=== PATIENT | female | born 1985 | race American Indian/Alaskan Native ===

== ENCOUNTER 2024-09-30 21:13 | Inpatient (IN) | payer OTHER, SELFPAY ==
[2024-09-30 17:48] VITALS: BP 115/70
--- NOTE | 2024-09-30 18:52 | ED.GENMED ---
History of Present Illness
General
Chief Complaint: Breathing Problem
Source: patient
Exam Limitations: none
Time Seen by Provider: 09/30/24 18:19
Nursing documentation reviewed up to this point in time: agreed with
History of Present Illness
History of Present Illness:
Patient diagnosed with lupus last year, currently taking hydroxychloroquine, presents to ED secondary to persistent, worsening chest pain with shortness of breath over the past 4 weeks. Chest pain described as sharp, worse when laying down, mildly
improved, when she leans forward. Patient has been evaluated in the emergency department on 3 separate occasions with unremarkable workup. Patient denies fever or chills. Denies nausea or vomiting. Denies direct trauma. Denies leg pain or
swelling. Denies back pain. In addition, patient reports dizziness with headache, and light sensitivity, at onset of her symptoms, which now has improved significantly. Denies recent travel. Denies sick contact. Denies previous history of
similar symptoms. During previous ED visits, patient reports having received CT head and CT chest without abnormal findings. Patient has been recommended to follow-up with cardiology as an outpatient, but does not have an appointment till November.
Review of Systems
Review of Systems
Allergies reviewed?: Yes
All Other Systems: ROS reviewed and negative except as documented in HPI and ROS
Constitutional: Reports no symptoms
Respiratory: Reports trouble breathing
Cardiac: Reports chest pain
ABD/GI: Reports no symptoms
Musculoskeletal: Reports no symptoms
Skin: Reports no symptoms
Neurological: Reports no symptoms
Phy Exam
Physical Exam
Physical Exam:
Physical Exam
General: mild distress, not acutely ill. afebrile
Head: nc/at. eomi
Neck: supple. no meningeal signs. no jvd
Heart: s1/s2 regular rate and rhythm, no murmur
Lungs: no acute respiratory distress. clear bilaterally
Abdomen: normal bowel sounds. not tender.
Neuro: alert and oriented x 3. no focal neurological deficits
Skin: no rash
Psychiatric: well kept. interactive and cooperative
Extremities: no edema. no calf tenderness.
Course
Orders/Labs/Results
Orders:
Orders
09/30/24 Breakfast
Regular
At Your Request: Full Participation
09/30/24 17:43
EKG [Electrocardiogram (*1)] Urgent
Reason for Study: Shortness of Breath
EKG- Treatment ONCE
09/30/24 18:49
Ketorolac [Toradol] 15 mg IV NOW STA
Test Result ONCE
09/30/24 19:01
0.9% Sodium Chloride 500 ml [Nss] 500 ml IV BOLUS
09/30/24 19:23
CPK [Creatine Phosphokinase] Urgent
Complete Blood Count/With Diff Urgent
Comprehensive Metabolic Panel Urgent
HCG, Serum Qualitative Screen Urgent
Magnesium Urgent
Troponin I Urgent
09/30/24 19:30
Colchicine 0.6 mg PO NOW STA
09/30/24 20:47
Admit/Transfer Patient As Directed
Co-Sign Provider:
Level of Care: Inpatient admission
Assign to:: Telemetry
Physician / Group: yanet
Diagnosis: pericarditis
Reason for Telemetry: Chest Pain syndromes
Date to Stop Telemetry: 10/02/24
Time to Stop Telemetry: 11:00
Reason for Hospitalization: pericarditis
Expected length of stay greater than two midnights?: Yes
ELOS- Estimated Length of Stay in days: 3
I certify the patient meets the requirements for IP care: Yes
09/30/24 20:48
PRN Pain Medication Management As Directed
May give lesser potent ordered pain med per pt: Yes
preference::
Protocol:: Medication orders for pain may be administered in a
manner that supports deferring to patient preference
when the pt is:
- Requesting an ordered lesser potent pain medication.
Least to most potent pain medications are defined
as: acetaminophen < NSAID < tramadol < opioids
(morphine, oxycodone, hydromorphone).
- Requesting a lesser dose of the same medication IF
ORDERED.
- Requesting a less intrusive route of administration
if both routes are prescribed by the provider (PO <
IV).
09/30/24 20:49
Code Status As Directed
Resuscitation Status: Full Code
09/30/24 21:48
Bisacodyl [Dulcolax] 10 mg RECTAL [id number] PRN
Docusate Sodium [Colace] 100 mg PO BID
Docusate W/Senna [Senokot-S] 1 tablet PO BIDPRN PRN
Polyethylene Glycol Powder [Miralax] 17 grams PO DAILYPRN PRN
09/30/24 21:48
CARDIOLOGY CONSULT Routine
Consulting Provider: Gustavo Chicas
Was physician already notified: Yes
Activity As Directed
Activity Level: As Tolerated
Vital Signs As Directed
Frequency: Per unit guidelines
DX Deep Vein Thrombosis Video Routine
09/30/24 22:00
Sennosides [Senna Syrup] 8.8 mg PO HS
10/01/24 01:26
Troponin I Q6H
10/01/24 02:00
Ketorolac [Toradol] 10 mg IV Q6HPRN PRN
10/01/24 06:00
Echo 2D MMode Color/Doppler IN AM
Reason for Study: chest pain
10/01/24 07:23
Troponin I Q6H
10/01/24 08:00
Colchicine 0.6 mg PO BID
10/01/24 18:00
Enoxaparin Sodium [Lovenox] 40 mg SC QPM
10/02/24 11:00
DC Protocol for Telemetry ONCE
Abnormal Lab Results
09/30/24
19:23
WBC 4.3 L 10^3/uL
(4.8-10.8)
RBC 4.10 L 10^6/uL
(4.20-5.40)
Hct 36.9 L %
(37.0-47.0)
MCH 31.5 H pg
(27.0-31.0)
Absolute Neuts (auto) 1.3 L 10^3/uL
(1.4-6.5)
Neutrophils % 30.8 L %
(42.2-75.2)
Lymphocytes % 58.0 H %
(20.5-51.1)
Monocytes % 9.5 H %
(1.7-9.3)
Creatinine 0.5 L mg/dL
(0.6-1.0)
Alkaline Phosphatase 37 L U/L
(38-126)
09/30/24 19:23
09/30/24 19:23
Vital Signs
Initial and Last Documented VS:
Initial Vital Signs
Temp Pulse Resp BP Pulse Ox
98.2 F 74 20 115/70 98
09/30/24 17:48 09/30/24 17:48 09/30/24 17:48 09/30/24 17:48 09/30/24 17:48
Last Documented Vital Signs
Temp Pulse Resp BP Pulse Ox
97.9 F 63 16 99/57 100
10/02/24 15:00 10/02/24 15:00 10/02/24 15:00 10/02/24 15:00 10/02/24 15:00
MDM/Problems Addressed
MDM/Problems Addressed:
Patient remains symptomatic despite treatment. History and exam concerning for potential pericarditis, as complication of her underlying lupus. As such, patient will be admitted for further evaluate treatment.
*Pulse Oximetry
SaO2: 98
Oxygen Mode of Delivery: Room air
Patient hypoxic: no
*EKG
Interpreted by ED Provider?: Yes
EKG Intrepretation Date: 09/30/24
Heart Rate: 65
Rate: normal
Rhythm: sinus
*Critical Care Note
Total Time (30-74mins, 75-104mins- exclusive of procedures): Not Applicable
ED Attending Note
-
Portions of this chart may have been created with voice recognition software.� Occasional wrong word or��sound alike� substitutions may have occurred due to the inherent limitations of voice recognition software.
Discharge Plan
Departure
Patient Disposition: Admit
Date of Disposition: 09/30/24
Time of Disposition: 20:44
Admit to: Med/Surg
Presentation/result/management discussed w/ accepting MD/DO: Hospitalist
Discharge Problem:
Chest pain
Interventions
Interventions:
*Risk Screen - Suicide Last Done: 09/30/24 19:13
*General Assessment Last Done: 09/30/24 17:48
*Neglect/Abuse Screening Last Done: 09/30/24 19:13
*ED- Fall Risk Assessment Last Done: 09/30/24 19:42
*Nursing Disposition Last Done: 09/30/24 21:46
ED- Cardiac Assessment Last Done: 09/30/24 19:42
ED- Pulmonary Assessment Last Done: 09/30/24 19:42
Discharge Date and Time
Discharge Date/Time: 09/30/24 21:46
[2024-09-30 19:12] VITALS: BMI 25.9
[2024-09-30 19:17] VITALS: BP 107/42
--- NOTE | 2024-09-30 19:18 | EDRN ---
Pt has had pain in the center of her chest x 3 weeks. Pt gets sob sometimes. Pain comes and goes but she says it is there more often than it is not. Pt notes decreased appetite and a feeling of fullness. Last BM 3 days ago. Pt says she took a
powder the past couple days for constipation. No abd pain. Occasional nausea, no vomiting. No fever/chills/cough, urinary symptoms. Pt adds when she leans down or lays on her left side the chest pain is better. Pt did not take anything for
pain. Pt went to two hospitals - September 11, and this morning and she says 'they do scans and xrays and tell me to see a business development agent and get an echo.'
[2024-09-30] MEDS: NSS 500 IV (19:30)
[2024-09-30] MEDS: TORADOL 15 MG IV (19:31)
[2024-09-30] MEDS: COLCHICINE 0.6 MG PO (19:37)
[2024-09-30 19:50] LABS: HCG, Serum Qualitative Screen Negative
[2024-09-30 19:54] LABS: ALT (SGPT) 32 U/L (0-35); AST (SGOT) 18 U/L (14-36); Albumin 4.8 g/dl (3.5-5.0); Alkaline Phosphatase 37 U/L (38-126); Blood Urea Nitrogen 11 mg/dl (7-17); Calcium 10.1 mg/dl (8.4-10.2); Carbon Dioxide 25 mmol/L (22-30); Chloride 106 mmol/L (98-107); Estimated Creatinine Clearance 114 ml/min; Glucose 78 mg/dl (70-99); Magnesium 2.1 mg/dl (1.6-2.3); Potassium 3.8 mmol/L (3.5-5.1); Sodium 140 mmol/L (135-145); Total Protein 8.0 g/dl (6.3-8.2); eGFR > 60.00
[2024-09-30 20:02] VITALS: BP 104/65
[2024-09-30 20:03] LABS: Troponin I < 0.012 ng/ml
[2024-09-30 20:07] LABS: Hematocrit 36.9 % (37.0-47.0); Hemoglobin 12.9 g/dL (12.0-16.0); Mean Corp Hgb Conc. 35.0 g/dL (33.0-37.0); Mean Corpuscular Volume 90.0 fL (81.0-99.0); Nucleated Red Blood Cells % 0 %; Platelet Count 238 10^3/uL (130-400); Red Cell Dist. Width 12.1 % (11.5-14.5)
--- NOTE | 2024-09-30 20:29 | HPS.HSE ---
Addendum entered and electronically signed by David Talamantes DO 09/30/24 23:04:
Patient seen and examined independently. Agree with findings and plan as set forth by ARNAUD Santizo.
Patient is a 39y F with PMH significant for lupus and antiphospholipid antibody syndrome who presents to ED complaining of chest pain. Patient states that she has been having sharp, substernal chest pain for about one month. Pain is worse with
lying flat and better with sitting upright / leaning forward. She has some associated / intermittent SOB. No fevers / chills. Occasional cough (with increased pain while coughing). She has been seen at 3 other EDs in the past month and presented
here this evening for additional evaluation of ongoing symptoms.
Ass:
Pericarditis
Lupus
Antiphospholipid Abs
GERD
Constipation
Plan:
Admit for further evaluation and treatment.
History consistent with pericarditis in this 39y F - ? secondary to infectious process / post-infectious versus SLE versus other.
NSAIDs, colchicine, etc.
Follow for improvement in chest pain syndrome.
Echo in the AM.
Cardiology consulted for additional recommendations.
Bowel regimen, PPI.
Original Note:
Family Physician
-
Family Physician: MATILDE DEL TORO
Chief Complaint
-
chest pain, sob
History of Present Illness
39 year old with PMH for factor V Leiden, Lupus, antiphospholipid syndrome presented to us with mid sternum chest pain for past three weeks. patient stated sob associated with pain. the pain is worse when laying down, improves when sitting up or
leaning forward. patient stated sometimes it feels like her water and food is stuck. stated some GARCIA. denied fever, chills. she is complaining of cough. she is complaining of abdominal pain because she has not moved her bowel in three days. she also
stated burping.she took miralax yesterday with no relief in her constipation. denied dysuria or hematuria. her BP is also low at home.
admitting for further management. patient received a dose of colchicine, Toradol and normal saline in ER. admitting for further management.
Medical History
Past Medical History
Past Medical History: Reports Other
Additional Past Medical History:
factor V Leiden
antiphospholipid syndrome
lupus
Past Surgical History: Reports None
Social History
Tobacco: Non-smoker
Alcohol: None
Drug: None
Personal:
Living: With Family
Family History
Family History: Not pertinent
Allergies / Home Medications
Allergies reflects when Allergies were last updated in [employer].
Home Medications with original date entered in [facility]
Allergy/Medication List:
Allergies
Allergy/AdvReac Type Severity Reaction Status Date / Time
No Known Allergies Allergy Unverified 09/30/24 17:48
Home Medications
hydroxychloroquine 1 tab PO DAILY 09/30/24
Review of Systems
-
Constitutional: Reports No Symptoms
EENT: Reports No Symptoms
Respiratory: Reports Cough and Trouble Breathing
Cardiac: Reports Chest Pain
Abdomen/GI: Reports Constipated
: Reports No Symptoms
Musculoskeletal: Reports No Symptoms
Skin: Reports No Symptoms
Neurological: Reports No Symptoms
Endocrine: Reports No Symptoms
Hematologic/Lymphatic: Reports No Symptoms
Psych: Reports No Symptoms
Physical Exam
Vital Signs
Vital Signs
Temp Pulse Resp BP Pulse Ox
98.2 F 58 17 107/42 98
09/30/24 17:48 09/30/24 19:18 09/30/24 19:18 09/30/24 19:17 09/30/24 18:56
Physical Exam
General: Well Developed, Well Nourished and No Apparent Distress
HEENT: NormoCephalic, Moist mucous membranes and Atraumatic
Respiratory: Clear
Cardiac: S1/S2 and Regular Rhythm; No Murmur or Rub
GI: Soft, Non Tender, Non Distended and Normal Bowel Sounds; No Organomegaly
Rectal: Deferred by Provider
Musculoskeletal: No Clubbing, No Cyanosis and No Edema
Skin: No Rash
Neuro: AO x 3 and Nonfocal/grossly intact
Psych: Calm
Laboratory Results
-
09/30/24 19:23
09/30/24 19:23
Laboratory Results
Total Bilirubin 1.0 mg/dl (0.2-1.3) 09/30/24 19:
AST 18 U/L (14-36) 09/30/24:
ALT 32 U/L (0-35) 09/30/24 19:
Alkaline Phosphatase 37 U/L (38-126) L 09/30/24:
Troponin I < 0.012 ng/ml 09/30/24 19:23
Data Reviewed
-
Lab Data: Labs Reviewed by me
Impression/Plan
-
#chest pain secondary to pericarditis
-toradol, colchicine continued
-ECHO in am
-cardiology consulted
-EKG NSR
#constipation
#GERD
-Colace, senna
-PPI added
#SLE
#factor V leiden
-antiphospholipid syndrome
-on hydroxy as outpatient.
#DVT prophylaxis
-Lovenox
#CODE status
-full code
[2024-09-30 21:00] VITALS: BP 99/69
[2024-09-30 22:02] VITALS: BP 117/53; BMI 25.7
[2024-09-30] MEDS: SENNA SYRUP 8.8 MG PO (22:25)
[2024-09-30] MEDS: COLACE 100 MG PO (22:25)
[2024-10-01 02:22] LABS: Troponin I < 0.012 ng/ml
[2024-10-01 03:13] VITALS: BP 112/58
[2024-10-01 07:00] VITALS: BP 108/52
[2024-10-01 08:01] LABS: Troponin I < 0.012 ng/ml
--- NOTE | 2024-10-01 08:12 | CON.CAR ---
Addendum entered and electronically signed by Steve Calero MD 10/01/24 12:48:
I saw and examined the patient.
The BOTTOM HOOP DRIVER or PA's note was reviewed and I agree with the note.
Comment: General: Well developed, well nourished in NAD.
Neck: Supple, no JVD, HJR, carotids +2 B/L, no bruits bilaterally.
Heart: Non displaced PMI, RRR, no murmurs, No S3, S4, no rubs.
Lungs: Clear to auscultation bilaterally, no wheeze, rhonchi, rubs bilaterally,
normal expiratory phase.
Abdomen: Normal bowel sounds, soft, non-tender, non-distended.
Extremities: No clubbing, cyanosis or edema bilaterally.
Neuro: Grossly nonfocal, awake, alert and oriented x3.
Jo has a history of lupus, antiphospholipid antibody syndrome, reflux. She has had chest discomfort for the last month. She has been in 3 different ERs and discharge. She presents with chest discomfort. It is worse with lying back and seems
to be improved with leaning forward. She feels it is worse when eating/drinking. Troponins have been negative. Cardiology is consulted for chest discomfort. Of note she is quite anxious at present complaining of pain and leaning forward. She
rates it as 7�9/10 of severity. She had some relief with Toradol. Echocardiogram, sed rate, CRP normal. Troponins negative. Echocardiogram normal.
Etiology of chest discomfort is unclear. There was some relief with Toradol. Will treat as possible pericarditis with colchicine 0.6 mg p.o. twice daily for 3 months as well as Motrin for 100 mg p.o. 3 times daily for 2 weeks. Would also add a
PPI given her known reflux. She should follow-up with cardiology as an outpatient. This is already been scheduled for November. Discussed with primary service. Stable cardiology status for discharge.
Original Note:
Consultation
Consultation Request
Date/Time Consultation Requested: 10/01/2024
Date/Time Consultation Performed: 10/01/2024
Requesting Provider: Dr. Talamantes
Performing Provider: Yamileth Cowan PA-C for Dr. Calero
Reason for Consultation: Chest pain
Medical History
-
History of Present Illness:
HPI: Jo is a 39 year old female with PMH of lupus, antiphospholipid syndrome, and GERD who presented to [facility] ER for evaluation of ongoing chest pain. She states over the past 3 weeks she has had intermittent epigastric/central chest pain. She
states symptoms seem to be worse with lying down and when eating/drinking. She notes a sensation as though food/drink is getting stuck in her esophagus and she needs to bend forward to have improvement in her symptoms. With this she also notes some
shortness of breath for a minute or so. She feels with time her symptoms have been occurring more frequently and she has been seen in multiple ERs recently with no clear etiology established. She was recommended to follow up with cardiology as OP,
but states she was unable to get an appointment until November. In ER here, workup has been unremarkable including stable, nonischemic EKG, negative troponin x 3, and stable BP and HR. No arrhythmias noted on telemetry. She was started on colchicine
given concern for possible pericarditis and notes maybe some improvement in her chest discomfort from a 9/10 to a 7/10 in severity when she feels it.
PMH:
Lupus
Antiphospholipid antibody syndrome
GERD
Past Medical History
Past Medical History: Other (In HPI)
Past Surgical History: None
Social History
Tobacco: Non-Smoker
Alcohol: None
Drug: None
Personal:
Living: With Family
Family History
Family History: Reviewed & Not Pertinent
Allergies / Home Medications
Allergy/AdvReac Type Severity Reaction Status Date / Time
No Known Allergies Allergy Unverified 09/30/24 17:48
�Medication �Instructions �Recorded �Confirmed �Type
hydroxychloroquine 1 tab PO DAILY Autoimmune Disorder 09/30/24 09/30/24 History
Review of Systems
-
History Source: Patient
All other systems: Negative unless noted
Physical Exam
Vital Signs
Temp Pulse Resp BP Pulse Ox
97.9 F 65 16 112/58 97
10/01/24 03:13 10/01/24 03:13 10/01/24 03:13 10/01/24 03:13 10/01/24 03:13
Lab Results
09/30/24 19:23
09/30/24 19:23
Troponin I < 0.012 ng/ml 10/01/24 07:23
Physical Exam
General: Well Developed, Well Nourished and No Apparent Distress
HEENT: Normocephalic, Anicteric and Moist Mucous Membranes
Respiratory: Clear and Non Labored Respirations
Cardiac: S1/S2 and Regular Rhythm
Musculoskeletal: No Clubbing, No Cyanosis and No Edema
Neuro: AO x 3 and Nonfocal/Grossly Intact
Psych: Calm
Impression / Plan
-
Dental Laboratory Supervisor: None
Impression:
Presented with 3 weeks of chest pain
Possible pericarditis
Lupus
Antiphospholipid antibody syndrome
GERD
Echo 10/01/2024: EF 60-65%, no RWMA, no significant valvular disease
Plan:
-Presents for evaluation of 3 weeks of intermittent chest pain and feeling as though food/drink are getting stuck in her throat.
-Troponin negative x 3. Sed rate, CRP pending.
-EKG stable, SR with no acute ischemic changes noted.
-Echo 10/01 with preserved EF, no WMA, no valvular disease.
-Does note some possible improvement since starting colchicine, so would continue.
-Agree w/ assessing for possible GI etiology. Continue PPI.
-BP overall stable. Not on any BP medications as OP.
-OK to keep OP cardiology follow up appt in November as previously scheduled.
HPI: Jo is a 39 year old female with PMH of lupus, antiphospholipid syndrome, and GERD who presented to [facility] ER for evaluation of ongoing chest pain. She states over the past 3 weeks she has had intermittent epigastric/central chest pain. She
states symptoms seem to be worse with lying down and when eating/drinking. She notes a sensation as though food/drink is getting stuck in her esophagus and she needs to bend forward to have improvement in her symptoms. With this she also notes some
shortness of breath for a minute or so. She feels with time her symptoms have been occurring more frequently and she has been seen in multiple ERs recently with no clear etiology established. She was recommended to follow up with cardiology as OP,
but states she was unable to get an appointment until November. In ER here, workup has been unremarkable including stable, nonischemic EKG, negative troponin x 3, and stable BP and HR. No arrhythmias noted on telemetry. She was started on colchicine
given concern for possible pericarditis and notes maybe some improvement in her chest discomfort from a 9/10 to a 7/10 in severity when she feels it.
Data Reviewed
-
EKG: Tracing Personally Visualized and interpreted
Medical Tests (Nuc Med, Echo etc): Report Reviewed by me
Labs: Labs Reviewed by me
Old Records: Reviewed
[2024-10-01] MEDS: PROTONIX 40 MG PO (09:19)
[2024-10-01] MEDS: COLCHICINE 0.6 MG PO ×2 (09:19→19:42)
[2024-10-01] MEDS: COLACE 100 MG PO ×2 (09:19→19:42)
[2024-10-01] MEDS: TORADOL 10 MG IV (09:23)
--- NOTE | 2024-10-01 10:42 | W.PN.HOSP.TC ---
Today's Communication/Plan
-
Assessment / Plan
Assessment / Plan
General: No Apparent Distress, Comfortable and Conversant
HEENT: NormoCephalic, Moist mucous membranes, Atraumatic
Respiratory: Clear and Non Labored Respirations
Cardiac: S1/S2 and Regular Rhythm; No Rub or Gallop
GI: Soft, Non Tender, minimally distended, diminished bowel Sounds
Musculoskeletal: No Edema, no deformity
Skin: Warm and dry
: NO Perez
Neuro: Awake, Alert, Nonfocal/grossly intact
Psych: Calm and Intact Judgment/Insight
Ms. Mcdowell is a 39-year-old female with a medical history of SLE (on hydroxychloroquine) and antiphospholipid antibody syndrome who presented with sharp and burning chest pain that have been ongoing for approximately 1 month prior to arrival.
Reported symptoms were worse when lying flat and with deep inspiration and improved when sitting upright and leaning forward. She also reports experiencing constipation.
Chest pain:
- Troponins negative, EKG unremarkable
- Treating empirically for possible pericarditis, however echocardiogram completed this morning is unremarkable
- Will explore possible GI etiologies of her presenting symptoms, continue PPI and add Carafate
- If no clear evidence of gastritis or peptic ulcers will start Motrin 3 times daily for empiric treatment of possible pericarditis, continuing colchicine
Constipation:
- Continue aggressive bowel regimen
- May need to pursue imaging of abdomen pelvis if her presenting symptoms appear more GI related than cardiac
Lupus:
- Confirm home hydroxychloroquine dose and continue
- Reported history of antiphospholipid antibody syndrome, does not appear to be on anticoagulation per med rec but will have to confirm
DVT prophylaxis: Lovenox
CODE STATUS: Full code
Total time spent on today's encounter was 40 minutes
Anticipated Discharge: 24 - 48 hours
Subjective/Interval History
-
Date of Service: October 01, 2024
Patient was seen and examined at bedside this morning. Continues to experience sharp and burning chest discomfort worse with deep inspiration and when lying flat on her back. Also complains of constipation with abdominal bloating. Echocardiogram
pending.
Objective Data
-
Vital Signs:
Vital Signs
Temp Pulse Resp BP Pulse Ox
98.0 F 65 16 108/52 98
10/01/24 07:00 10/01/24 07:00 10/01/24 07:00 10/01/24 07:00 10/01/24 07:00
I&O
09/30/24 10/01/24 10/02/24
06:59 06:59 06:59
Intake Total 240 / 240
Balance 240 / 240
Review of Systems
-
Respiratory: Reports Pleurisy
Cardiac: Reports Chest Pain
Abdomen/GI: Reports Constipated and Bloated
Physical Exam
-
General: No Apparent Distress
[2024-10-01] MEDS: CARAFATE SUSPENSION 1 GM PO (10:59)
[2024-10-01 11:10] VITALS: BP 104/52
[2024-10-01 12:34] LABS: C-Reactive Protein < 5.00 mg/L (0.0-10.00)
[2024-10-01] MEDS: OMNIPAQUE 50 ML PO (13:55)
[2024-10-01 15:00] VITALS: BP 106/61
--- NOTE | 2024-10-01 16:03 | CM ---
Alert awake oriented patient who lives with her Kelly and 3 children in a 2 story home with 3 steps to enter and 20 steps to bed/bathroom. She is independent in activates of daily living.She does drive .Offered VN she declined need.
No VN in past . No SNF hx
Pharmacy [facility]
PCP DR Suzanna Ospina
PLAN Home with no needs
[2024-10-01] MEDS: LOVENOX 40 MG SC (17:02)
[2024-10-01] MEDS: PLAQUENIL 200 MG PO (17:07)
[2024-10-01] MEDS: MOTRIN 400 MG PO (18:03)
[2024-10-01] MEDS: MAALOX PLUS 1 TABLET PO (18:03)
[2024-10-01 19:40] VITALS: BP 106/54
[2024-10-01] MEDS: SENNA SYRUP 8.8 MG PO (19:42)
[2024-10-01] MEDS: TUMS CHEWABLE TABLET 400 MG PO (23:12)
[2024-10-01 23:41] VITALS: BP 107/59
[2024-10-02] VITALS (14 sets, daily range): BP systolic 14–109; BP diastolic 52–65
[2024-10-02 06:36] LABS: Hematocrit 36.9 % (37.0-47.0); Hemoglobin 13.1 g/dL (12.0-16.0); Mean Corp Hgb Conc. 35.5 g/dL (33.0-37.0); Mean Corpuscular Volume 89.6 fL (81.0-99.0); Platelet Count 231 10^3/uL (130-400); Red Cell Dist. Width 12.0 % (11.5-14.5)
[2024-10-02 06:47] LABS: Blood Urea Nitrogen 12 mg/dl (7-17); Calcium 9.2 mg/dl (8.4-10.2); Carbon Dioxide 21 mmol/L (22-30); Chloride 112 mmol/L (98-107); Estimated Creatinine Clearance 114 ml/min; Glucose 88 mg/dl (70-99); Potassium 4.0 mmol/L (3.5-5.1); Sodium 140 mmol/L (135-145); eGFR > 60.00
[2024-10-02 07:29] LABS: Nucleated Red Blood Cells % 0 %
[2024-10-02] MEDS: PROTONIX 40 MG PO (08:32)
[2024-10-02] MEDS: COLCHICINE 0.6 MG PO ×2 (08:32→20:57)
[2024-10-02] MEDS: PLAQUENIL 200 MG PO (08:32)
[2024-10-02] MEDS: COLACE 100 MG PO ×2 (08:32→20:58)
--- NOTE | 2024-10-02 08:40 | CON.GI ---
Addendum entered and electronically signed by Paulino Romo MD 10/02/24 13:19:
I saw and examined the patient.
The COUNTER PROFESSIONAL or PA's note was reviewed and I agree with the note.
Comment:
Pt is a 49 y/o female. with lupus, hydroxycholorquine with intermittent ibuprofen with chest pain for 3 weeks, taking peptobismol. ? of pericarditis. also constipation
abd: soft, nontender
impression:
atypical chest pain
constipation
plan:
egd to r/o PUD as may need nsaids for ?pericardition
PPI
miralax for constipation
Original Note:
Consultation
-
Date/Time Consultation Requested: 10/01/24 3452
Date/Time Consultation Performed: 10/02/24 4663
Requesting Provider: ARNAUD Sprague
Performing Provider: Dr. Romo/ARNAUD Grigsby
Reason for Consultation: GERD/constipation
Medical History
Chief Complaint / HPI
Chief Complaint: chest pain
History of Present Illness:
49-year-old female with past medical history of lupus, antiphospholipid antibody and hydroxychloroquine with rare ibuprofen use presents to the emergency room with chest pain for the past 3 weeks associated with shortness of breath. The patient
also complains of GERD that is not acidic and has been occurring for the past 3 to 4 days also associated with constipation for the same duration of time. Prior to this she was having bowel movements once daily. No prior history of GERD or reflux
prior to onset of constipation. She also complains that her blood pressure has been low for the past couple days as well. She states that she has not been drinking as much fluid. She does not complain of any dysphagia to me however it is in other
reports to cardiology. She does complain of a chest pressure worse with lying down for the past couple weeks. She does state that she tried a 'pink liquid' for GI discomfort that did not change her symptoms. She thinks this may have been
Pepto-Bismol. In for possible pericarditis with some improvement in symptoms. She also had improvement with Toradol as well. At the present time she denies any fevers, chills, nausea, vomiting, melena, hematochezia, dysphagia or odynophagia. No
early satiety or unintentional weight loss. Prior to her episode of constipation without any bowel movements for the past 3 days she was having soft formed daily bowel movements. She does not smoke. She does not drink any alcohol. Other than the
a mentioned medication above she may take an occasional vitamin D supplement.
Past Medical History
Past Medical History: Other (Lupus, antiphospholipid antibody)
Past Surgical History: Tonsilectomy
Social History
Tobacco: Non-Smoker
Alcohol: None
Drug: None
Personal:
Living: With Family
Family History
Family History: Other (Father with history of pancreatic cancer (), no other family history of gastrointestinal malignancy or IBD)
Allergies / Home Medications
Allergy/AdvReac Type Severity Reaction Status Date / Time
No Known Allergies Allergy Unverified 09/30/24 17:48
�Medication �Instructions �Recorded
hydroxychloroquine 1 tab PO DAILY Autoimmune Disorder 09/30/24
Review of Systems
-
All other systems: A 12 pt ROS was Negative except as stated above in HPI
Vital Signs
Temp Pulse Resp BP Pulse Ox
98.6 F 59 16 94/57 98
10/02/24 07:00 10/02/24 07:00 10/02/24 07:00 10/02/24 07:00 10/02/24 07:00
Physical Exam
Exam
General: No Apparent Distress
HEENT: Anicteric
Respiratory: Clear
Cardiac: Regular Rhythm
GI: Soft, Non Tender, Non Distended and Normal Bowel Sounds
Musculoskeletal: No Edema
Skin: Warm and Dry
Neuro: AO x 3
Psych: Calm
Results
WBC 4.0 10^3/uL (4.8-10.8) L 10/02/24 05:57
Hgb 13.1 g/dL (12.0-16.0) 10/02/24 05:57
Hct 36.9 % (37.0-47.0) L 10/02/24 05:57
MCV 89.6 fL (81.0-99.0) 10/02/24 05:57
Plt Count 231 10^3/uL (130-400) 10/02/24 05:57
Absolute Neuts (auto) 1.4 10^3/uL (1.4-6.5) 10/02/24 05:57
Sodium 140 mmol/L (135-145) 10/02/24 05:57
Potassium 4.0 mmol/L (3.5-5.1) 10/02/24 05:57
Chloride 112 mmol/L (98-107) H 10/02/24 05:57
Carbon Dioxide 21 mmol/L (22-30) L 10/02/24 05:57
BUN 12 mg/dl (7-17) 10/02/24 05:57
Creatinine 0.4 mg/dL (0.6-1.0) L 10/02/24 05:57
Calcium 9.2 mg/dl (8.4-10.2) 10/02/24 05:57
Total Bilirubin 1.0 mg/dl (0.2-1.3) 09/30/24 19:23
AST 18 U/L (14-36) 09/30/24 19:23
ALT 32 U/L (0-35) 09/30/24 19:23
Alkaline Phosphatase 37 U/L (38-126) L 09/30/24 19:23
Diagnostic Image Results:
CT abdomen and pelvis with IV and oral contrast:
IMPRESSION:
Moderate volume colonic stool, possibly secondary to constipation.
Small corpus luteal cyst in the left ovary. Mild free fluid in the pelvis, likely physiologic.
Prior GI Procedures:
EGD: Never
Colonoscopy: Never
Assessment / Plan
-
49-year-old female with past medical history of lupus, antiphospholipid antibody and hydroxychloroquine with rare ibuprofen use presents to the emergency room with chest pain for the past 3 weeks associated with shortness of breath. The patient
also complains of GERD that is not acidic and has been occurring for the past 3 to 4 days also associated with constipation for the same duration of time. Patient has been evaluated by cardiology. There are concerns for possible pericarditis.
They would like to treat her with colchicine as well as Motrin. Given the patient's history of new onset GERD would like to evaluate with EGD first. CT of abdomen and pelvis with oral and IV contrast reviewed. Patient with significant stool
burden throughout colon. Prior to recent onset with decreased p.o. intake she was having normal bowel movements.
Impression:
Chest pain --> cardiology has already seen patient and like to start treating for pericarditis
Nonacidic reflux
Constipation
Lupus
Antiphospholipid antibody syndrome
Plan:
- EGD today
-Patient currently n.p.o. except for meds
-Continue pantoprazole daily, especially in light of colchicine and ibuprofen use
-Will treat constipation, may start with MiraLAX, Colace and senna. However to see may act to keep bowel loose going forward.
-Further recommendations to be forthcoming.
-
-
Thank you for consultation and allowing me to participate in the patient's care. Please call the fraud prevention analyst GI physician during the after hours with any questions or concerns.
--- NOTE | 2024-10-02 13:35 | W.PN.UPDATE ---
Update Note
Progress Note Update
remains with stable BP/HR. EKG SR without acute ST abnormalities. trops serially negative. echo with preserved EF, no valvular disease or WMA. motrin 400mg TID for 2 weeks was added to colchicine 0.6mg BID for 3 months for treatment of possible
pericarditis and PPI added. SED/ESR normal. patient for EGD today. OP cardiac follow up as already arranged. will sign off.
--- NOTE | 2024-10-02 13:54 | W.PN.UPDATE ---
Update Note
Progress Note Update
EGD:
in distal esophagus a punctate erythematous area either from a pill sitting or ectopic mucosa, biospied.
stomach and duodenum biopsied
plan;
diet
f/u biopsies
carafate
will sign off call with questions
--- NOTE | 2024-10-02 14:53 | W.PN.HOSP.TC ---
Today's Communication/Plan
-
Assessment / Plan
Assessment / Plan
General: No Apparent Distress, Comfortable and Conversant
HEENT: NormoCephalic, Moist mucous membranes, Atraumatic
Respiratory: Clear and Non Labored Respirations
Cardiac: S1/S2 and Regular Rhythm; No Rub or Gallop
GI: Soft, Non Tender, normal bowel Sounds
Musculoskeletal: No Edema, no deformity
Skin: Warm and dry
: NO Perez
Neuro: Awake, Alert, Nonfocal/grossly intact
Psych: Calm and Intact Judgment/Insight
Ms. Mcdowell is a 39-year-old female with a medical history of SLE (on hydroxychloroquine) and antiphospholipid antibody syndrome who presented with sharp and burning chest pain that have been ongoing for approximately 1 month prior to arrival.
Reported symptoms were worse when lying flat and with deep inspiration and improved when sitting upright and leaning forward. She also reports experiencing constipation.
Chest pain:
- Troponins negative, EKG unremarkable
- Treating empirically for possible pericarditis with colchicine, however echocardiogram is unremarkable
- Started PPI and add Carafate
- EGD today showed distal esophagitis (possibly pill esophagitis) and gastritis, biopsies pending
- Will continue PPI and Carafate, avoid NSAIDs
- Anticipate discharge in next 24 hours
Constipation:
- Continue aggressive bowel regimen
-CT imaging of abdomen pelvis unremarkable other than moderate volume of colonic stool
Lupus:
-Continue home dose of hydroxychloroquine 20 mg daily
- Reported history of antiphospholipid antibody syndrome, does not appear to be on anticoagulation per med rec
DVT prophylaxis: Lovenox
CODE STATUS: Full code
Total time spent on today's encounter was 40 minutes
Anticipated Discharge: Within 24 hours
Subjective/Interval History
-
Date of Service: October 02, 2024
Patient was seen and examined at bedside this morning. CT angiography negative for PE or other pathology. Planning EGD today.
Objective Data
-
Labs:
Laboratory Results
10/02/24
05:57
WBC 4.0 L
Hgb 13.1
Hct 36.9 L
Plt Count 231
Sodium 140
Potassium 4.0
Chloride 112 H
Carbon Dioxide 21 L
BUN 12
Creatinine 0.4 L
Glucose 88
Calcium 9.2
Vital Signs:
Vital Signs
Temp Pulse Resp BP Pulse Ox
97.6 F 58 18 108/65 100
10/02/24 13:50 10/02/24 14:20 10/02/24 14:20 10/02/24 14:15 10/02/24 14:20
I&O
10/01/24 10/02/24 10/03/24
06:59 06:59 06:59
Intake Total 240 / 240 2340 / 2340
Balance 240 / 240 2340 / 2340
Review of Systems
-
History Source: Patient
All other systems: Reviewed and negative
Abdomen/GI: Reports Abdominal Pain and Constipated
Physical Exam
-
General: No Apparent Distress
[2024-10-02] MEDS: MIRALAX 17 GRAMS PO (15:42)
[2024-10-02] MEDS: CARAFATE 1 GRAM PO ×2 (15:44→20:58)
[2024-10-02] MEDS: LOVENOX 40 MG SC (16:49)
[2024-10-02] MEDS: SENNA SYRUP 8.8 MG PO (20:58)
[2024-10-02] MEDS: TUMS CHEWABLE TABLET 400 MG PO (22:45)
[2024-10-03 03:39] VITALS: BP 94/58
[2024-10-03 07:35] VITALS: BP 103/63
--- NOTE | 2024-10-03 07:43 | PTCARENOTE ---
This pt c/o chest palpations and SOB this morning. EKG w/ NSR. Vitals stable. HR in the 90's on monitor when she stated palpitations. pulse ox 99-100% on room air. made aware.
[2024-10-03] MEDS: COLACE 100 MG PO (08:30)
[2024-10-03] MEDS: PLAQUENIL 200 MG PO (08:30)
[2024-10-03] MEDS: PROTONIX 40 MG PO (08:30)
[2024-10-03] MEDS: COLCHICINE 0.6 MG PO (08:30)
[2024-10-03] MEDS: CARAFATE 1 GRAM PO ×2 (08:30→11:49)
[2024-10-03 11:37] VITALS: BP 108/67
--- NOTE | 2024-10-03 11:53 | W.DCSUMMARY ---
Discharge Summary
Discharge Data
Date of Admission: 09/30/24
Date of Discharge: 10/03/24
Total time spent discharging patient (in min): 45
-
Pending Results: No
Hospital Course
Ms. Mcdowell is a 39-year-old female with a medical history of SLE (on hydroxychloroquine) and antiphospholipid antibody syndrome who presented with sharp and burning chest pain that had been ongoing for approximately 1 month prior to arrival.
Reported symptoms were worse when lying flat and with deep inspiration and improved when sitting upright and leaning forward. She also reports experiencing constipation. She was admitted for further evaluation and management of possible
pericarditis.
She was started on colchicine with some improvement in her symptoms. Her troponins and inflammatory markers were unremarkable. Echocardiogram did not show any clear evidence of pericarditis however there is a possibility that these markers could
be artificially suppressed due to her hydroxychloroquine use for lupus. She underwent upper endoscopy for evaluation of GI etiology of her symptoms. Endoscopy revealed esophagitis and gastritis. There was some evidence of possible pill
esophagitis. She was started on a proton pump inhibitor and sucralfate for her GI symptoms. She will be continued on a course of colchicine for possible pericarditis, however she should avoid using NSAIDs due to her GI symptoms. She was treated
with an aggressive bowel regimen for her constipation which she should continue as needed. She should also continue on her home dose of hydroxychloroquine. She will need close outpatient follow-up with her primary care physician, with her
cd mixer, and with gastroenterology. At time of hospital discharge she was medically stable.
General: No Apparent Distress, Comfortable and Conversant
HEENT: NormoCephalic, Moist mucous membranes, Atraumatic
Respiratory: Clear and Non Labored Respirations
Cardiac: S1/S2 and Regular Rhythm; No Rub or Gallop
GI: Soft, Non Tender, normal bowel Sounds
Musculoskeletal: No Edema, no deformity
Skin: Warm and dry
: NO Perez
Neuro: Awake, Alert, Nonfocal/grossly intact
Psych: Calm and Intact Judgment/Insight
Discharge Plan
-
Discharge Diagnosis/Procedures: Esophagitis and gastritis, pericarditis
Activity Restrictions/Additional Instructions:
Ms. Mcdowell is a 39-year-old female with a medical history of SLE (on hydroxychloroquine) and antiphospholipid antibody syndrome who presented with sharp and burning chest pain that had been ongoing for approximately 1 month prior to arrival.
Reported symptoms were worse when lying flat and with deep inspiration and improved when sitting upright and leaning forward. She also reports experiencing constipation. She was admitted for further evaluation and management of possible
pericarditis.
She was started on colchicine with some improvement in her symptoms. Her troponins and inflammatory markers were unremarkable. Echocardiogram did not show any clear evidence of pericarditis however there is a possibility that these markers could
be artificially suppressed due to her hydroxychloroquine use for lupus. She underwent upper endoscopy for evaluation of GI etiology of her symptoms. Endoscopy revealed esophagitis and gastritis. There was some evidence of possible pill
esophagitis. She was started on a proton pump inhibitor and sucralfate for her GI symptoms. She will be continued on a course of colchicine for possible pericarditis, however she should avoid using NSAIDs due to her GI symptoms. She was treated
with an aggressive bowel regimen for her constipation which she should continue as needed. She should also continue on her home dose of hydroxychloroquine. She will need close outpatient follow-up with her primary care physician, with her
cd mixer, and with gastroenterology. At time of hospital discharge she was medically stable.
Referrals:
NONE,* [Family Provider, Internal Medicine]
Prescriptions:
New
sucralfate 1 gram Tablet
1 g PO ACHS 30 Days Qty: 120 0RF
sennosides 8.8 mg/5 mL Syrup
8.8 mg PO HS 30 Days Qty: 150 0RF
pantoprazole 40 mg Tablet,Delayed Release (Dr/Ec)
40 mg PO DAILY 90 Days Qty: 90 0RF
docusate sodium 100 mg Capsule
100 mg PO BID 30 Days Qty: 60 0RF
colchicine 0.6 mg Tablet
0.6 mg PO BID 90 Days Qty: 180 0RF
Continued
hydroxychloroquine 200 mg
1 tab PO DAILY
Patient Comments:
pt does not know mg
Discharge Orders:
Discharge Patient (As Directed); Ordered 10/03/24
Ordered By: Lorenzo Bhatti
Discharge Date and Time
Print Language: KAZAKH
--- NOTE | 2024-10-03 14:32 | CM ---
MD entered order for discharge. spoke with pt she said she was ready for discahrge.
She said her friend Rob will drive her home today .
Offered VN she declined need.
PLAN Home no needs
[2024-10-03 14:54] VITALS: BP 104/62
== END 2024-10-03 15:23 | disposition home or self-care (01) | DRG 315 ==
LOC: 4 EAST ACU 21:13
PROVIDERS: Registered Nurse; ADMITTING PHYSICIAN Hospitalist; ATTENDING PHYSICIAN Internal Medicine; CONSULT PHYSICIAN Internal Medicine; EMERGENCY PHYSICIAN Emergency Medicine; OTHER PHYSICIAN Internal Medicine Cardiovascular Disease
PROC: 0DB58ZX Excision of Esophagus, Via Natural or Artificial Opening Endoscopic, Diagnostic (ICD-10-PCS; 2024-10-02)
PROC: 0DB68ZX Excision of Stomach, Via Natural or Artificial Opening Endoscopic, Diagnostic (ICD-10-PCS; 2024-10-02)
PROC: 0DB98ZX Excision of Duodenum, Via Natural or Artificial Opening Endoscopic, Diagnostic (ICD-10-PCS; 2024-10-02)
DX: I31.9 Disease of pericardium, unspecified (principal); D68.51 Activated protein C resistance; D68.61 Antiphospholipid syndrome; K59.00 Constipation, unspecified; K21.9 Gastro-esophageal reflux disease without esophagitis; M32.9 Systemic lupus erythematosus, unspecified; K29.70 Gastritis, unspecified, without bleeding; K20.0 Eosinophilic esophagitis; L93.0 Discoid lupus erythematosus
CPT/HCPCS: 88305; 71275; 74177; 80048; 80053; 82550; 83735; 84484; 84703; 85025; 85652; 86140; 88342; 93005; 93306; 99285; Q9967